=== PATIENT | female | born 2000 | race Caucasian/White ===

== ENCOUNTER 2025-08-26 21:29 | Emergency (ER) | payer OTHER ==
[~2025-08-26] VITALS: Ht 160 cm; Wt 62.0 kg
[2025-08-26 21:59] VITALS: O2SAT 100
[2025-08-26 22:23] LABS: CLARITY URINE CLOUDY (CLEAR); COLOR URINE YELLOW (YELLOW); GLUCOSE URINE NEGATIVE (NEGATIVE); KETONES URINE NEGATIVE (NEGATIVE); LEUKOCYTE ESTERASE URINE 3+ (NEGATIVE); NITRITE URINE NEGATIVE (NEGATIVE); OCCULT BLOOD URINE 3+ (NEGATIVE); PH URINE 6.0 (4.5-8.0); PROTEIN URINE 1+ (NEGATIVE); SPECIFIC GRAVITY URINE 1.011 (1.005-1.030); UROBILINOGEN URINE 0.2 E.U./dL (0.2-1.0)
[2025-08-26 22:39] LABS: BACTERIA URINE TRACE; RBC URINE TNTC /hpf (0-2); SQUAMOUS EPITHELIAL CELL URINE FEW /lpf (RARE/1+); WBC URINE 50-100 /hpf (0-2)
[2025-08-26] MEDS: IBUPROFEN 600MG TABLET PO ONE (22:43)
[2025-08-26 22:44] VITALS: BP 111/80; PULSE 94; RESP 18; TEMP 36.7; O2SAT 100
[2025-08-26 22:54] LABS: BASOPHILS % 0.6 % (0.0-2.0); EOSINOPHILS % 1.0 % (0.0-5.0); HEMATOCRIT. 42.0 % (36.0-48.0); HEMOGLOBIN. 14.1 g/dL (12.0-16.0); LYMPHOCYTES % 25.0 % (20.0-50.0); MEAN PLATELET VOLUME 10.5 fl (7.4-10.4); MONOCYTES % 6.2 % (2.0-8.0); NEUTROPHILS % 67.2 % (40.0-76.0); PLATELET 236 x1000/uL (130-400); RED BLOOD CELL COUNT 4.54 mill/uL (4.2-5.4); RED CELL DISTRIBUTION WIDTH 13.1 % (11.6-14.6)
[2025-08-26 23:06] LABS: HCG SCREEN NEGATIVE
[2025-08-26 23:07] LABS: CREATININE 0.8 mg/dL (0.6-1.0)
[2025-08-26 23:08] LABS: UREA NITROGEN BLOOD 12 mg/dL (9-23)
[2025-08-26] MEDS ORDERED: PHEN-909 MT (23:13)
[2025-08-26] MEDS ORDERED: CEPH500C2 MT (23:13)
== END 2025-08-26 23:36 | disposition home or self-care (01) ==
LOC: ER 21:29
DX: N39.0 Urinary tract infection, site not specified (principal); Z91.040 Latex allergy status
CPT/HCPCS: 36415; 80048; 81003; 81025; 84703; 85025; 87186; 99283